=== PATIENT | male | born 1940 | race Caucasian/White ===

== ENCOUNTER 2016-10-09 13:41 | Emergency (ER) | payer MEDICARE, OTHER ==
[2016-10-09 13:54] VITALS: BP 151/85
--- NOTE | 2016-10-09 14:44 | ER Document Report ---
ED Medical Screen (RME) - General Chief Complaint: Abnormal Lab Results Stated Complaint: ABNORMAL LABS Time Seen by Provider: 10/09/16 14:38 Mode of Arrival: Ambulatory Information source: Patient Notes: 76 yo male presents to ed for concern after going to [facility] for up grade for [facility] benefits. They told him he had to come to the ed for Afib even though he is having no pain or shortness of breath. I have greeted and performed a rapid initial assessment of this patient. A comprehensive ED assessment and evaluation of the patient, analysis of test results and completion of medical decision making process will be conducted by an additional ED providers. TRAVEL OUTSIDE OF THE [place] IN LAST 30 DAYS: No - Related Data Allergies/Adverse Reactions: No Known Allergies Allergy (Unverified 01/10/15 09:45) Past Medical History - Past Medical History Cardiac Medical History: Reports: Hx Hypertension Renal/ Medical History: Denies: Hx Peritoneal Dialysis - Immunizations Hx Diphtheria, Pertussis, Tetanus Vaccination: - unknown Physical Exam - Vital signs Vitals: Temp Pulse Resp BP Pulse Ox 98.1 F 66 15 151/85 H 96 10/09/16 13:50 10/09/16 13:50 10/09/16 13:50 10/09/16 13:50 10/09/16 13:50 Course - Vital Signs Vital signs: Temp Pulse Resp BP Pulse Ox 98.1 F 66 15 151/85 H 96 10/09/16 13:50 10/09/16 13:50 10/09/16 13:50 10/09/16 13:50 10/09/16 13:50
--- NOTE | 2016-10-09 15:09 | ER Document Report ---
ED General - General Chief Complaint: Abnormal Lab Results Stated Complaint: ABNORMAL LABS Time Seen by Provider: 10/09/16 14:38 Mode of Arrival: Ambulatory Information source: Patient Notes: This is a 76-year-old man with a history of Parkinson's disease, hypertension and BPH who is [facility] because of new onset atrial fibrillation. The patient states he was therefore a checkup and to fill out some paperwork regarding disability when he was told he had an irregular heartbeat and they referred him to the emergency room. The patient denies any chest pain, shortness of breath, palpitations. TRAVEL OUTSIDE OF THE [place] IN LAST 30 DAYS: No - HPI Onset: Just prior to arrival Onset/Duration: Sudden Quality of pain: No pain Severity: None Pain Level: Denies Associated symptoms: denies: Chest pain, Fever, Shortness of breath Exacerbated by: Denies Relieved by: Denies Similar symptoms previously: Yes Recently seen / treated by doctor: Yes - Related Data Allergies/Adverse Reactions: No Known Allergies Allergy (Unverified 01/10/15 09:45) Past Medical History - General Information source: Patient - Social History Smoking Status: Never Smoker Cigarette use (# per day): No Chew tobacco use (# tins/day): No Frequency of alcohol use: None Drug Abuse: None Lives with: Spouse/Significant other Family History: None Patient has suicidal ideation: No Patient has homicidal ideation: No - Past Medical History Cardiac Medical History: Reports: Hx Hypertension Neurological Medical History: Reports: Other - Parkinson'e disease Endocrine Medical History: Reports: None Renal/ Medical History: Reports: None. Denies: Hx Peritoneal Dialysis GI Medical History: Reports: None Musculoskeltal Medical History: Reports None Psychiatric Medical History: Reports: None Traumatic Medical History: Reports: None Infectious Medical History: Reports: None Surgical Hx: Negative - Immunizations Hx Diphtheria, Pertussis, Tetanus Vaccination: - unknown Review of Systems - Review of Systems Constitutional: denies: Chills, Fever EENT: No symptoms reported Cardiovascular: No symptoms reported Respiratory: No symptoms reported Gastrointestinal: No symptoms reported Genitourinary: No symptoms reported Male Genitourinary: No symptoms reported Musculoskeletal: No symptoms reported Skin: No symptoms reported Hematologic/Lymphatic: No symptoms reported Neurological/Psychological: No symptoms reported Physical Exam - Vital signs Vitals: Temp Pulse Resp BP Pulse Ox 98.1 F 66 15 151/85 H 96 10/09/16 13:50 10/09/16 13:50 10/09/16 13:50 10/09/16 13:50 10/09/16 13:50 Notes: Physical exam: GENERAL: 76-year-old male, alert and oriented 3, no acute distress HEAD: Atraumatic, normocephalic. EYES: Pupils equal round and reactive to light, extraocular movements intact, sclera anicteric, conjunctiva are normal. ENT: TMs normal, nares patent, oropharynx clear without exudates. Moist mucous membranes. NECK: Normal range of motion, supple without lymphadenopathy or JVD. LUNGS: Breath sounds clear to auscultation bilaterally and equal. No wheezes rales or rhonchi. HEART: Regular rate and rhythm without murmurs, rubs or gallops. ABDOMEN: Soft, normoactive bowel sounds. No tenderness to palpation. No guarding, no rebound. No masses appreciated. EXTREMITIES: Normal range of motion, no pitting or edema. No clubbing or cyanosis. NEUROLOGICAL: Cranial nerves II through XII grossly intact. Normal speech, normal gait. PSYCH: Normal mood, normal affect. SKIN: Warm, Dry, normal turgor, no rashes or lesions noted. Course - Vital Signs Vital signs: Temp Pulse Resp BP Pulse Ox 98.1 F 66 15 151/85 H 96 10/09/16 13:50 10/09/16 13:50 10/09/16 13:50 10/09/16 13:50 10/09/16 13:50 - Laboratory Result Diagrams: 10/09/16 14:50 10/09/16 14:50 Laboratory results interpreted by me: 10/09/16 14:50 RBC 4.33 L Hgb 13.0 L - EKG Interpretation by Il Rate: Normal Rhythm: NSR - EKG shows normal sinus rhythm with a ventricular rate of 67, no acute ST-T wave changes. Discharge - Discharge Clinical Impression: Sinus rhythm Condition: Stable Disposition: HOME, SELF-CARE Additional Instructions: Review of today's events: You had an EKG at the [facility] and they were worried about an irregular heartbeat (atrial fibrillation) and they referred you to the emergency room. We were unable to get a copy of that EKG performed at the [place]. I suspect that you were shaking from the Parkinson's and it may have caused artifact on that EKG because your EKG here in the emergency room is normal. Your labs here in the emergency room were normal. You were watched for all your in the emergency room on a presales engineer and heart rate has remained normal. Recommendations: Follow-up with Dr. Monzon this week. Bring a copy of today's EKG, lab work and discharge summary with you. Return to the emergency room at once if you develop any chest pain, shortness of breath, or palpitations or any concerns that she might have Referrals: MARCIA MONZON MD [Primary Care Provider] - Follow up in 3-5 days
[2016-10-09 15:16] LABS: ABSOLUTE EOSINOPHILS # (AUTO) 0.2 10^3/uL (0.0-0.6); ABSOLUTE LYMPHOCYTES (AUTO) 1.3 10^3/uL (0.5-4.7); ABSOLUTE MONOCYTES (AUTO) 0.6 10^3/uL (0.1-1.4); ABSOLUTE NEUT (AUTO) 5.5 10^3/uL (1.7-8.2); BASOPHILS % (AUTO) 0.7 % (0-2); EOSINOPHILS % (AUTO) 2.3 % (0-6); HEMATOCRIT 39.5 % (37.9-51.0); HGB HCT DIFFERENCE -0.5; LYMPHOCYTES % (AUTO) 16.9 % (13-45); MEAN CORPUSCULAR HGB CONC 32.8 g/dL (32.0-36.0); MEAN CORPUSCULAR VOLUME 91 fl (80-97); MONOCYTES % (AUTO) 7.6 % (3-13); RED BLOOD COUNT 4.33 10^6/uL (4.35-5.55); RED CELL DISTRIBUTION WIDTH 13.3 % (11.5-14.0); SEGMENTED NEUTROPHILS % (AUTO) 72.5 % (42-78); WHITE BLOOD COUNT 7.5 10^3/uL (4.0-10.5)
[2016-10-09 15:28] LABS: ALANINE AMINOTRANSFERASE 26 U/L (21-72); ALBUMIN 3.6 g/dL (3.5-5.0); ALKALINE PHOSPHATASE 73 U/L (38-126); ANION GAP 9 (5-19); ASPARTATE AMINO TRANSFERASE 23 U/L (17-59); BILIRUBIN,DIRECT 0.2 mg/dL (0.0-0.4); BILIRUBIN,TOTAL 0.5 mg/dL (0.2-1.3); BLOOD UREA NITROGEN 16 mg/dL (7-20); CALCIUM 8.5 mg/dL (8.4-10.2); CARBON DIOXIDE 26 mmol/L (22-30); CHLORIDE 104 mmol/L (98-107); CREATINE KINASE 99 U/L (55-170); CREATININE RESULT 0.77 mg/dL (0.52-1.25); GLUCOSE 92 mg/dL (75-110); POTASSIUM 4.8 mmol/L (3.6-5.0); SODIUM 139.1 mmol/L (137-145); TOTAL PROTEIN 6.5 g/dL (6.3-8.2)
[2016-10-09 15:39] LABS: CREATINE KINASE MB 2.04 ng/mL (<4.55); TROPONIN I < 0.012 ng/mL
--- NOTE | 2016-10-09 20:48 | EKG REPORT ---
SEVERITY:- ABNORMAL ECG - SINUS RHYTHM LEFT ANTERIOR FASCICULAR BLOCK : Confirmed by: Conor Taylor 09-Oct-2016 20:47:43
== END 2016-10-09 16:45 | disposition home or self-care (01) ==
LOC: ER 13:41
DX: Z71.1 Person with feared health complaint in whom no diagnosis is made (principal); I10 Essential (primary) hypertension; G20 Parkinson's disease
CPT/HCPCS: 36415; 80053; 82550; 82553; 84443; 84484; 85025; 93005; 93010; 99283

== ENCOUNTER 2016-12-17 10:23 | Day surgery (SDC) | payer MEDICARE, OTHER ==
[~2016-12-17 10:23] MED LIST: KETOROLAC TROMETHAMINE 0.45% 4 DROP/0.4 ML DROPERETTE OD PRN
[2016-12-17] MEDS ORDERED: LIDOCAINE 1% INJ-PF (10 MG/ML) 30 ML SDV ONE (10:36)
[2016-12-17] MEDS ORDERED: PHENYLEPHRINE/KETOROLAC 1%-0.3% 4 ML VIAL ONE (10:36)
[2016-12-17] MEDS ORDERED: CHONDR SU A NA/HYALUR INTRAOC KIT (SURGICARE) ONE (10:36)
[2016-12-17] MEDS: BESIFLOXACIN HCL 0.6% OPH SUSP 5 ML BOTTLE OD PRN ×3 (11:05→11:15)
[2016-12-17] MEDS: TROPICAMIDE 1% OPH SOLN 3 ML OD PRN ×3 (11:05→11:25)
[2016-12-17] MEDS: CYCLOPENTOLATE 0.2%/PHENYLEPHRINE 1% OPH SOLN 2 ML OD PRN ×3 (11:05→11:25)
[2016-12-17] MEDS: TETRACAINE HCL 0.5% OPH SOLN 2 ML OD PRN ×3 (11:06→11:53)
[2016-12-17] MEDS ORDERED: FENTANYL CITRATE INJ/PF 100 MCG/2 ML AMPUL ONE (11:26)
[2016-12-17] MEDS ORDERED: MIDAZOLAM 2 MG/2 ML INJ ONE (11:26)
--- NOTE | 2016-12-17 14:37 | [facility] OPERATIVE REPORT E ---
[facility] Operative Report NAME: YUNIER MIRZA AGE: 76Y DATE OF SURGERY: 12/17/2016 ROOM: PREOPERATIVE DIAGNOSIS: Cataract, right eye. POSTOPERATIVE DIAGNOSIS: Cataract, right eye. OPERATION: Cataract extraction with intraocular lens implant of the right eye. SURGEON: DEQUAN BORJA M.D. ANESTHESIA: Topical. PROCEDURE: After obtaining appropriate consent, the patient's right eye was prepped and draped in sterile fashion as well as the surgeon in a sterile manner and cataract surgery was started. First a paracentesis blade was used to make a small side-port incision. Viscoelastic was used to inflate the anterior chamber. Next a 2.4 mm incision was made with the paracentesis blade. A continuous capsulorrhexis incision was made using a cystotome and Utrata forceps. Following this hydrodissection was carried out to make the lens fully loose and mobile and it was rotated 90 degrees. Following this, a tpcpyl-xmi-euodjjy technique was used to phacoemulsify the lens with a CDE of 12.05. The remaining cortex was removed with irrigation/aspiration. Provisc was instilled into the capsular bag to inflate the bag. A SN60WF, 22.5 diopter lens was placed. The remaining viscoelastic material was removed with irrigation/aspiration. Following this, a 10-0 nylon suture was used to close the incision and it was found to be watertight. Vigamox was instilled in the eye and a protective shield was placed over the eye. The patient returned to the postoperative recovery in stable condition. DICTATING PHYSICIAN: DEQUAN BORJA M.D. [id number] PHY#: [id number] ID: [id number] JOB#: [id number] ACCT: [id number] cc:DEQUAN BORJA M.D. >
--- NOTE | 2016-12-17 14:38 | [facility] DISCHARGE SUMMARY E ---
[facility] Discharge Summary NAME: YUNIER MIRZA AGE: 76Y ADMITTED: 12/17/2016 DISCHARGED: 12/17/2016 HISTORY OF PRESENT ILLNESS AND HOSPITAL COURSE: This is a 76-year-old patient who underwent cataract extraction of the right eye. DIAGNOSIS: Cataract, right eye. HOSPITAL COURSE: He underwent surgery because he was having difficulty driving at night secondary to glare from headlights. DISCHARGE INSTRUCTIONS: 1. He should be on a regular diet. 2. No bending at his waist and no heavy lifting. 3. He should use his Besivance, Ilevro, and Durezol at 3 p.m. and 8 p.m. and sleep with a rigid shield. 4. I will see him for his 1-day postoperative tomorrow. DICTATING PHYSICIAN: DEQUAN BORJA M.D. [id number] PHY#: [id number] ID: [id number] JOB#: [id number] ACCT: [id number] cc:DEQUAN BORJA M.D. >
== END 2016-12-17 13:10 | disposition home or self-care (01) ==
LOC: SC 10:23
PROVIDERS: ATTEND Internal Medicine
PROC: 08RJ3JZ Replacement of Right Lens with Synthetic Substitute, Percutaneous Approach (ICD-10-PCS; principal; 2016-12-17 12:00)
DX: H25.11 Age-related nuclear cataract, right eye (principal); H57.03 Miosis; K21.9 Gastro-esophageal reflux disease without esophagitis; I10 Essential (primary) hypertension; G20 Parkinson's disease; Z79.899 Other long term (current) drug therapy; Z79.82 Long term (current) use of aspirin
CPT/HCPCS: 66984; V2632; J2250; J3490 ×2; A9270; J3010; C9447; 142

== ENCOUNTER 2017-01-07 10:43 | Day surgery (SDC) | payer MEDICARE, OTHER ==
[~2017-01-07 10:43] MED LIST changes: -KETOROLAC TROMETHAMINE 0.45% 4 DROP/0.4 ML DROPERETTE OD PRN; +KETOROLAC TROMETHAMINE 0.45% 4 DROP/0.4 ML DROPERETTE OS PRN
[2017-01-07] MEDS ORDERED: LIDOCAINE 1% INJ-PF (10 MG/ML) 30 ML SDV ONE (11:03)
[2017-01-07] MEDS ORDERED: PHENYLEPHRINE/KETOROLAC 1%-0.3% 4 ML VIAL ONE (11:03)
[2017-01-07] MEDS ORDERED: CHONDR SU A NA/HYALUR INTRAOC KIT (SURGICARE) ONE (11:03)
[2017-01-07] MEDS: TROPICAMIDE 1% OPH SOLN 3 ML OS PRN ×3 (11:18→11:40)
[2017-01-07] MEDS: TETRACAINE HCL 0.5% OPH SOLN 2 ML OS PRN ×3 (11:18→11:48)
[2017-01-07] MEDS: BESIFLOXACIN HCL 0.6% OPH SUSP 5 ML BOTTLE OS PRN ×3 (11:19→12:14)
[2017-01-07] MEDS: CYCLOPENTOLATE 0.2%/PHENYLEPHRINE 1% OPH SOLN 2 ML OS PRN ×3 (11:19→11:40)
[2017-01-07] MEDS ORDERED: FENTANYL CITRATE INJ/PF 100 MCG/2 ML AMPUL ONE (11:34)
[2017-01-07] MEDS ORDERED: MIDAZOLAM 2 MG/2 ML INJ ONE ×2 (11:34→11:55)
--- NOTE | 2017-01-07 18:32 | [facility] OPERATIVE REPORT E ---
[facility] Operative Report NAME: YUNIER MIRZA AGE: 76Y DATE OF SURGERY: 01/07/2017 ROOM: PREOPERATIVE DIAGNOSES: 1. Cataract, left eye. 2. Pupil miosis, left eye. POSTOPERATIVE DIAGNOSES: 1. Cataract, left eye. 2. Pupil miosis, left eye. OPERATION: Complex cataract extraction with use of Malyugin ring due to a very miotic pupil. SURGEON: DEQUAN BORJA M.D. ANESTHESIA: Topical. PROCEDURE: After obtaining appropriate consent, the patient's right eye was prepped and draped in sterile fashion as well as the surgeon in a sterile manner and cataract surgery was started. First a paracentesis blade was used to make a small side-port incision. Viscoelastic was used to inflate the anterior chamber. Next a 2.4 mm incision was made with the paracentesis blade. A continuous capsulorrhexis incision was made using a cystotome and Utrata forceps. Following this hydrodissection was carried out to make the lens fully loose and mobile and it was rotated 90 degrees. Following this, a izkbes-bla-masjwoq technique was used to phacoemulsify the lens with a CDE of 12.44. The remaining cortex was removed with irrigation/aspiration. Provisc was instilled into the capsular bag to inflate the bag. A SN60WF, 21.5 diopter lens was placed. The remaining viscoelastic material was removed with irrigation/aspiration. Following this, a 10-0 nylon suture was used to close the incision and it was found to be watertight. Vigamox was instilled in the eye and a protective shield was placed over the eye. The patient returned to the postoperative recovery in stable condition. Prior to making the capsulorrhexis, a Malyugin ring was inserted. This was removed at the end of the case. DICTATING PHYSICIAN: DEQUAN BORJA M.D. [id number] PHY#: [id number] ID: [id number] JOB#: [id number] ACCT: [id number] cc:DEQUAN BORJA M.D. >
--- NOTE | 2017-01-07 18:37 | [facility] DISCHARGE SUMMARY E ---
[facility] Discharge Summary NAME: YUNIER MIRZA AGE: 76Y ADMITTED: 01/07/2017 DISCHARGED: 01/07/2017 HISTORY OF PRESENT ILLNESS AND HOSPITAL COURSE: This is a 76-year-old patient who underwent complex cataract extraction of the left eye with use of a Malyugin ring. DIAGNOSES: 1. Cataract, left eye. 2. Pupil miosis, left eye. HOSPITAL COURSE: The patient underwent surgery because he was having difficulty driving at night secondary to glare. DISCHARGE INSTRUCTIONS: 1. He should be on a regular diet. 2. No bending at the waist. 3. No heavy lifting. 4. He should use Besivance, Ilevro, and Durezol at 3 p.m. and 8 p.m. and is to sleep with a rigid shield. 5. I will see him for his 1 day postoperative tomorrow. DICTATING PHYSICIAN: DEQUAN BORJA M.D. [id number] PHY#: [id number] ID: [id number] JOB#: [id number] ACCT: [id number] cc:DEQUAN BORJA M.D. >
== END 2017-01-07 13:00 | disposition home or self-care (01) ==
LOC: SC 10:43
PROVIDERS: ATTEND Internal Medicine
PROC: 08RK3JZ Replacement of Left Lens with Synthetic Substitute, Percutaneous Approach (ICD-10-PCS; principal; 2017-01-07 12:30)
DX: H25.12 Age-related nuclear cataract, left eye (principal); H57.03 Miosis; I10 Essential (primary) hypertension; K21.9 Gastro-esophageal reflux disease without esophagitis; I49.9 Cardiac arrhythmia, unspecified; R01.1 Cardiac murmur, unspecified; G20 Parkinson's disease; Z79.899 Other long term (current) drug therapy; Z79.82 Long term (current) use of aspirin
CPT/HCPCS: 66982; V2632; J2250; J3490 ×2; A9270; J3010; C9447; 142